=== PATIENT | female | born 1940 | race Two or more races ===

== ENCOUNTER → 2017-02-20 | Outpatient (REF) | payer MEDICARE, MEDICAID | LOC: M LAB REF 17:31 | PROVIDERS: ATTEND Internal Medicine | DX: K12.30 Oral mucositis (ulcerative), unspecified (principal) ==

== ENCOUNTER → 2017-03-17 | Outpatient (REF) | payer MEDICARE, MEDICAID | LOC: M LAB REF 16:12 → EEVIPCON 16:12 | PROVIDERS: ATTEND Internal Medicine | DX: K12.30 Oral mucositis (ulcerative), unspecified (principal) ==

== ENCOUNTER → 2017-04-12 | Outpatient (REF) | payer MEDICARE, MEDICAID | LOC: M LAB REF 14:04 | PROVIDERS: ATTEND Internal Medicine | DX: N39.0 Urinary tract infection, site not specified (principal) ==